=== PATIENT | male | born 1995 | race Caucasian/White ===

== ENCOUNTER 2020-04-03 10:26 | Outpatient (CLI) | payer OTHER ==
[~2020-04-03 10:26] MED LIST: ALBU8.5H8 INH
[2020-04-03] MEDS ORDERED: PRED10TA PO (11:27)
[2020-04-03] MEDS ORDERED: FLUT1BLS IH (11:27)
[2020-04-03] MEDS ORDERED: MONT10TA6 PO (11:27)
[2020-04-03] MEDS ORDERED: spiriva PO (11:27)
[2020-04-03] MEDS ORDERED: GUAI12009 PO (11:27)
[2020-04-03] MEDS ORDERED: OMEP-110 PO (11:27)
[2020-04-03] MEDS ORDERED: PANT40TA3 PO (11:27)
[2020-04-03 11:35] LABS: BASOPHILS # (AUTO) 0.05 x10^3/uL (0-0.1); BASOPHILS % (AUTO) 1 % (0-1); EOSINOPHILS # (AUTO) 0.01 x10^3/uL (0-0.4); EOSINOPHILS % (AUTO) 0 % (1-7); LYMPHOCYTES # (AUTO) 2.73 x10^3/uL (1-3.4); LYMPHOCYTES % (AUTO) 27 % (22-44); MD NO; MEAN CORPUSCULAR HEMOGLOBIN 30.5 pg (27.5-34.5); MEAN CORPUSCULAR HGB CONC 33.2 g/dL (33.2-36.2); MEAN PLATELET VOLUME 7.6 fL (7.4-10.4); MONOCYTES # (AUTO) 0.49 x10^3/uL (0.2-0.8); MONOCYTES % (AUTO) 5 % (2-9); NEUTROPHILS # (AUTO) 7.02 x10^3/uL (1.8-6.8); NEUTROPHILS % (AUTO) 68 % (42-75); PLATELET COUNT 358 x10^3/uL (130-400); RED BLOOD COUNT 5.13 x10^6/uL (4.38-5.82); RED CELL DISTRIBUTION WIDTH 12.4 % (9.4-14.8)
[2020-04-03 11:43] LABS: INTERNATIONAL NORMALIZED RATIO 0.97 (0.93-1.1); PROTHROMBIN TIME 10.3 Seconds (9.6-11.5)
== END 2020-04-03 23:59 | disposition home or self-care (01) ==
LOC: STAR 10:26
PROVIDERS: ATTEND Internal Medicine
DX: Z01.818 Encounter for other preprocedural examination (principal); R04.2 Hemoptysis
CPT/HCPCS: 36415; 85025; 85610; 85730

== ENCOUNTER 2020-04-07 07:47 | Day surgery (SDC) | payer OTHER ==
[~2020-04-07] VITALS: Ht 165.1 cm; Wt 83.4 kg
[~2020-04-07 07:47] MED LIST changes: +FLUT1BLS IH; +GUAI12009 PO; +MONT10TA6 PO; +OMEP-110 PO; +PANT40TA3 PO; +PRED10TA PO; +spiriva PO
[2020-04-07 08:58] VITALS: BP 143/80
[2020-04-07] MEDS ORDERED: [UNRECOGNIZED DRUG - OTHER] PO (09:06)
[2020-04-07] MEDS ORDERED: MIRT7.5T8 PO (09:06)
[2020-04-07] MEDS ORDERED: LACTATED RINGERS 1,000 ML IV SCH (09:07)
[2020-04-07] MEDS ORDERED: CHLORHEXIDINE 15 ML UDC ONE (09:11)
[2020-04-07] MEDS ORDERED: CHLORHEXIDINE 15 ML UDC MM ONE (09:30)
[2020-04-07] MEDS ORDERED: FENTANYL PF 100 MCG/2ML ONE (10:22)
[2020-04-07] MEDS ORDERED: MIDAZOLAM 1 MG/ML, 5ML ONE (10:22)
[2020-04-07] MEDS ORDERED: LIDOCAINE 2%, 20ML ONE (17:59)
[2020-04-07] MEDS ORDERED: LIDOCAINE 1%, 50ML ONE (17:59)
== END 2020-04-07 14:15 | disposition home or self-care (01) ==
LOC: OUT 07:47
PROVIDERS: ATTEND Internal Medicine
DX: R04.2 Hemoptysis (principal); Z11.59 Encounter for screening for other viral diseases; J45.50 Severe persistent asthma, uncomplicated; G47.33 Obstructive sleep apnea (adult) (pediatric); Z79.899 Other long term (current) drug therapy
CPT/HCPCS: 31622; 36415; 87635; 99152; 99153; J2250; J3010

== ENCOUNTER 2020-04-11 08:08 | Day surgery (SDC) | payer OTHER ==
[~2020-04-11] VITALS: Ht 165.1 cm; Wt 84.5 kg
[~2020-04-11 08:08] MED LIST changes: +MIRT7.5T8 PO; +[UNRECOGNIZED DRUG - OTHER] PO
[2020-04-11 08:46] VITALS: BP 133/84
[2020-04-11] MEDS ORDERED: MIDAZOLAM 1 MG/ML, 2ML ONE (08:46)
[2020-04-11] MEDS ORDERED: DEXAMETHASONE 4 MG/ML, 1ML ONE (08:47)
[2020-04-11] MEDS ORDERED: ROCURONIUM 10MG/ML,5ML ONE (08:47)
[2020-04-11] MEDS ORDERED: FENTANYL PF 100 MCG/2ML ONE ×2 (08:47→10:41)
[2020-04-11] MEDS ORDERED: CEFAZOLIN 1,000 MG ONE (08:47)
[2020-04-11] MEDS ORDERED: NEOSTIGMINE 1 MG/ML, 10ML ONE (08:47)
[2020-04-11] MEDS ORDERED: GLYCOPYRROLATE 0.2MG/1ML, 5ML ONE (08:47)
[2020-04-11] MEDS ORDERED: SUCCINYLCHOLINE 20 MG/ML, 10ML ONE (08:47)
[2020-04-11] MEDS ORDERED: PROPOFOL 10 MG/ML, 20ML ONE (08:47)
[2020-04-11] MEDS ORDERED: ONDANSETRON 2MG/ML, 2ML ONE (08:47)
[2020-04-11] MEDS ORDERED: LACTATED RINGERS 1,000 ML IV SCH (08:49)
[2020-04-11] MEDS ORDERED: CHLORHEXIDINE 15 ML UDC MM ONE (09:00)
[2020-04-11] MEDS ORDERED: ALPR0.5T7 PO (09:16)
[2020-04-11] MEDS ORDERED: TRAZ-175 PO (09:16)
[2020-04-11] MEDS ORDERED: morphine SULFATE 10 MG/ML, 1ML IVPush PRN (10:00)
[2020-04-11] MEDS ORDERED: PROMETHAZINE 25 MG/ML, 1ML IVPush PRN (10:00)
[2020-04-11] MEDS ORDERED: MEPERIDINE/PF 25MG/0.5ML IVPush PRN (10:00)
[2020-04-11] MEDS ORDERED: OXYcodone 5 MG/5 ML ORAL.SOL UDC PO PRN (10:00)
[2020-04-11] MEDS: FENTANYL PF 100 MCG/2ML IV PRN ×3 (10:48→11:15)
== END 2020-04-11 14:50 | disposition home or self-care (01) ==
LOC: OUT 08:08
PROVIDERS: ATTEND Internal Medicine
DX: R04.2 Hemoptysis (principal); G47.33 Obstructive sleep apnea (adult) (pediatric); J45.50 Severe persistent asthma, uncomplicated; Z79.899 Other long term (current) drug therapy; Z82.49 Family history of ischemic heart disease and other diseases of the circulatory system; Z83.3 Family history of diabetes mellitus
CPT/HCPCS: 31624; 87015; 87070; 87102; 87116; 87205; 87206; 88112; 88305; 88312; J0330; J0690; J1100; J2250; J2405; J2704; J2710; J3010; J7120

== ENCOUNTER → 2020-04-18 | Outpatient (CLI) | payer OTHER ==
[~2020-04-18] MED LIST changes: +ALPR0.5T7 PO; +TRAZ-175 PO
== END | disposition home or self-care (01) ==
LOC: CFH 08:27
PROVIDERS: ATTEND Internal Medicine
DX: R04.2 Hemoptysis (principal)
CPT/HCPCS: 71250

== ENCOUNTER → 2020-10-03 | Outpatient (CLI) | payer OTHER ==
[~2020-10-03] MED LIST changes: +OMNIPAQUE 350 MG/ML, 100ML BOTTLE ONE
== END | disposition home or self-care (01) ==
LOC: CFH 12:22
PROVIDERS: ATTEND Family Medicine
DX: K42.9 Umbilical hernia without obstruction or gangrene (principal); N28.1 Cyst of kidney, acquired; J45.50 Severe persistent asthma, uncomplicated
CPT/HCPCS: 71046; 74177; Q9967

== ENCOUNTER → 2020-10-08 | Outpatient (CLI) | payer OTHER ==
[~2020-10-08] MED LIST changes: -OMNIPAQUE 350 MG/ML, 100ML BOTTLE ONE
[2020-10-08 17:15] LABS: MICROSCOPIC INDICATED
== END | disposition home or self-care (01) ==
LOC: LAB 16:25
PROVIDERS: ATTEND Internal Medicine
DX: J45.50 Severe persistent asthma, uncomplicated (principal); R82.998 Other abnormal findings in urine
CPT/HCPCS: 36415; 81001; 82784; 82785; 85048